=== PATIENT | male | born 1975 | race Caucasian/White ===

== ENCOUNTER → 2021-02-11 | Outpatient (CLI) | payer OTHER | LOC: KOH-I 10:56 | DX: S46.211A Strain of muscle, fascia and tendon of other parts of biceps, right arm, initial encounter (principal) | CPT/HCPCS: 73221 ==

== ENCOUNTER → 2021-02-18 | Outpatient (CLI) | payer OTHER ==
[~2021-02-18] MED LIST: IBU800 MG PO; METFORMIN HCL500 M2 PO; NORVASC10 MG PO; PROTONIX40 MG PO; VALSARTAN-HCTZ1 EACH PO
[2021-02-18 10:06] LABS: BUN/CREATININE RATIO 16 (0-10)
[2021-02-18 10:14] LABS: HEMOGLOBIN 15.9 gm/dl (14.0-17.5); RED BLOOD COUNT 5.3 M/UL (4.20-5.50); WHITE BLOOD COUNT 7.6 K/UL (4.5-11.0)
== END ==
LOC: OPSV2 09:00
PROVIDERS: Orthopaedic Surgery
DX: Z01.812 Encounter for preprocedural laboratory examination (principal); S46.211A Strain of muscle, fascia and tendon of other parts of biceps, right arm, initial encounter; X58.XXXA Exposure to other specified factors, initial encounter
CPT/HCPCS: 36415; 80048; 85025